=== PATIENT | male | born 1985 | race Caucasian/White ===

== ENCOUNTER 2024-09-10 18:45 | Emergency (ER) | payer OTHER, SELFPAY ==
[2024-09-10 18:52] VITALS: BP 129/89
[2024-09-10 19:11] VITALS: BMI 30.8
--- NOTE | 2024-09-10 20:09 | ED.GENMED ---
History of Present Illness
General
Chief Complaint: Musculo-Skeletal Complaint
Source: patient
Exam Limitations: none
Time Seen by Provider: 09/10/24 19:48
Nursing documentation reviewed up to this point in time: agreed with
History of Present Illness
History of Present Illness:
39-year-old right-handed male with history as documented presents to the emergency department for evaluation of a right fifth finger injury. Patient was at [facility] [place] [facility] He slipped and fell forward
with left hand outstretched and injured his left finger. He has a laceration on the palmar aspect of the finger with deformity at the PIP joint. He denies any other injuries during the fall.
Review of Systems
Review of Systems
All Other Systems: ROS reviewed and negative except as documented in HPI and ROS
Musculoskeletal: Reports other (Finger injury)
Skin: Reports other (Finger laceration)
Phy Exam
Physical Exam
Physical Exam:
General: Awake, alert, nontoxic
Head: Normocephalic, atraumatic
Eyes: Conjunctiva normal
Throat: Airway intact, handling secretions
Neck: Trachea midline, moving through comfortable range of motion
Lungs: Breathing comfortably with no distress, no evidence of accessory muscle use
Heart: Regular rate
Neuro: No gross deficits
Extremities: Exam of patient's left hand�he has obvious deformity of the fifth digit with a large and deep laceration essentially directly over the PIP joint on the palmar aspect approximately 2 cm in horizontal; the proximal phalanx is visible
through the wound
Scores
Heart Failure Risk
Heart Failure Risk Score: Not Applicable
Heart Score for Chest Pain Patients
STEMI patient?: Not applicable
Withdrawal Assessment of Alcohol
Withdrawal Assessment Completed?: Not applicable
Course
Orders/Labs/Results
Orders:
Orders
09/10/24 18:49
Finger(s)/Thumb 2 View Lt [CR Finger(s)/thumb Min 2 Vw Lt] Urgent
Comment:
Reason For Exam: left pinky laceration
Indicate Which Finger:: Little Finger
09/10/24 20:01
CeFAZolin SODIUM [Ancef] 1,000 mg IM NOW STA
Tetanus/Diphth/Acelpertussis [Adacel] 0.5 ml IM .ONCE ONE
09/10/24 20:12
Sterile Water [Sterile Water For Injection] 10 ml .ROUTE .STK-MED ONE
09/10/24 20:21
CeFAZolin 2 GRAM [Ancef] 2 grams in 10 ml IV NOW
Vital Signs
Initial and Last Documented VS:
Initial Vital Signs
Temp Pulse Resp BP Pulse Ox
36.9 C 60 18 129/89 98
09/10/24 18:52 09/10/24 18:52 09/10/24 18:52 09/10/24 18:52 09/10/24 18:52
Last Documented Vital Signs
Temp Pulse Resp BP Pulse Ox
36.9 C 60 18 129/89 98
09/10/24 18:52 09/10/24 18:52 09/10/24 18:52 09/10/24 18:52 09/10/24 18:52
Procedures
Laceration Closure
Left Fifth Finger:
Status of Wound: clean
Size of Wound in cm: 2
Description of Wound Edges: ragged
Preparation: cleaned with saline and cleaned with Betadine
Anesthesia: 1% Lidocaine and Digital-Regional
Revision/Debridement: irrigate-direct pressure
Wound exploration: no tendon involvement (tendon visible but no injury noted)
Type of Closure: single layer closure
Skin Closure Material: 4-0 nylon
Number of sutures: 6
Splinting/Sling Placement
Left Fifth Finger:
Procedure completed by: Ismael Phoenix MD
Pre-splint extermity exam: good alignment
Type of splint: finger-function position
Splint material: aluminum-foam
Splint checked by provider?: Yes
Joint/Fracture Reduction
Left Fifth Finger:
Indication for procedure:: dislocation at PIP joint 5th digit left hand
Procedure completed by: Ismael Phoenix MD
Anesthesia/sedation: Regional block
Injury was: open
Further treatement: needs further treatment
Post reduction exam: stable
Capillary Refill: normal
MDM/Problems Addressed
Differential Diagnosis Includes:
Fracture, dislocation
MDM/Problems Addressed:
39-year-old male presents after a fall while rollerskating injured his left fifth digit. Obvious deformity and laceration as above. X-ray done in triage shows dislocation no fracture. Case discussed with orthopedist�they recommended close
reduction, copious irrigation, closure and splint and follow-up with hand surgeon within a week. Recommended a dose of IV antibiotics and discharged on oral antibiotic. Explained to patient above conversation and we will proceed with treatment
plan. Will also update his tetanus shot.
Using digital block for anesthesia able to successfully reduce dislocation; wound was subsequently vigorously irrigated with 4+ liters of saline solution mixed with Betadine and brushed out with surgical sponge. I did explore the wound after
reduction and although the flexor tendon is visible no visible injury and he was able to range the digit well after reduction. After cleaning the wound proceeded with laceration repair using simple erupted sutures as documented in procedure note.
I then applied clean dressing and splint. He was given a dose of IV Ancef will discharge on p.o. cephalosporin. He will follow-up with hand surgeon within a week. He feels very comfortable with this plan. We spoke in detail about risk of
infection and return precautions. All questions answered.
*Radiology
Radiology exam reviewed: preliminary read by ED provider and radiology read reviewed
*Pulse Oximetry
Patient hypoxic: no
*Critical Care Note
Total Time (30-74mins, 75-104mins- exclusive of procedures): Not Applicable
Data Reviewed
Source: patient
Patient Management
Discussion with other providers: [employer] (Discussed with orthopedist)
ED Attending Note
-
Portions of this chart may have been created with voice recognition software.� Occasional wrong word or��sound alike� substitutions may have occurred due to the inherent limitations of voice recognition software.
Discharge Plan
Departure
Patient Disposition: Home (Routine Discharge)
Date of Disposition: 09/10/24
Time of Disposition: 21:52
Patient with high blood pressure during this ER visit?: No
Discharge Problem:
Finger laceration, Dislocated finger
Instructions: Common Finger Injuries ED, Laceration
Prescriptions:
New
cephalexin 500 mg tablet
500 mg PO QID 7 Days Qty: 28 0RF
Referrals:
Alexandre Magallon MD [Active] - Follow up in 5-7 days (Call first thing tomorrow morning to make next available appointment--must be seen within 1 week!)
Activity Restrictions/Additional Instructions:
Thank you for visiting the Emergency Department at [facility].
1. Please schedule a follow up appointment as directed. Call first thing tomorrow morning to make an appointment.
2. If indicated, please take your medications as instructed and indicated on discharge paperwork.
3. If any of your symptoms do not improve, or persist, or become more severe within 6-12 hours, please return to the emergency department for further care.
4. Please return to the emergency department if you develop a headache, neck pain/stiffness, fever greater than 100.4F, chest pain, shortness of breath, persistent nausea, vomiting, slurred speech, difficulty walking, numbness/tingling, weakness,
signs of infection or any other symptoms that are worrisome to you.
Please call [phone] if you have any questions.
Interventions
Interventions:
*Risk Screen - Suicide Last Done: 09/10/24 18:52
*General Assessment Last Done: 09/10/24 18:52
*Neglect/Abuse Screening Last Done: 09/10/24 18:52
*ED COVID-19 Vaccine History Last Done: 09/10/24 18:52
*Nursing Disposition Last Done: 09/10/24 22:05
ED-Musculoskeletal Assessment Last Done: 09/10/24 19:11
Discharge Date and Time
Discharge Date/Time: 09/10/24 22:07
Print Language: ICELANDIC
[2024-09-10] MEDS: ADACEL 0.5 ML IM (20:30)
[2024-09-10] MEDS: ANCEF 10 IV (20:43)
== END 2024-09-10 22:07 | disposition home or self-care (01) ==
LOC: EMR 18:45
PROVIDERS: EMERGENCY PHYSICIAN Emergency Medicine; FAMILY PHYSICIAN Family Medicine
DX: S61.217A Laceration without foreign body of left little finger without damage to nail, initial encounter (principal); S63.287A Dislocation of proximal interphalangeal joint of left little finger, initial encounter; W01.0XXA Fall on same level from slipping, tripping and stumbling without subsequent striking against object, initial encounter; Z23 Encounter for immunization
CPT/HCPCS: 99283; 26770; 96374; 90471; 73140; 90715